=== PATIENT | female | born 1960 | race Caucasian/White ===

== ENCOUNTER 2024-05-18 06:23 | Day surgery (SDC) | payer OTHER, SELFPAY | END 2024-05-18 10:09 | disposition home or self-care (01) | LOC: GI 06:23 | PROVIDERS: ATTENDING PHYSICIAN Internal Medicine | DX: Z12.11 Encounter for screening for malignant neoplasm of colon (principal); D12.2 Benign neoplasm of ascending colon; K64.8 Other hemorrhoids; K57.30 Diverticulosis of large intestine without perforation or abscess without bleeding | CPT/HCPCS: 45380; 45381; 88305 ==

== ENCOUNTER 2024-07-20 06:18 | Day surgery (SDC) | payer OTHER, SELFPAY ==
[2024-07-20 06:50] VITALS: BMI 21.4
[2024-07-20 06:55] VITALS: BP 130/70
[2024-07-20 07:03] VITALS: BMI 21.4
[2024-07-20 09:27] VITALS: BP 107/67
[2024-07-20 09:30] VITALS: BP 111/84
[2024-07-20 09:45] VITALS: BP 124/82
[2024-07-20 09:50] VITALS: BP 106/63
== END 2024-07-20 10:00 | disposition home or self-care (01) ==
LOC: SDS 06:18
PROVIDERS: ATTENDING PHYSICIAN Internal Medicine Gastroenterology
DX: D12.2 Benign neoplasm of ascending colon (principal); K57.30 Diverticulosis of large intestine without perforation or abscess without bleeding; K64.0 First degree hemorrhoids
CPT/HCPCS: 45390; 88305

== ENCOUNTER 2025-01-18 06:21 | Day surgery (SDC) | payer OTHER, SELFPAY | END 2025-01-18 09:13 | disposition home or self-care (01) | LOC: GI 06:21 | PROVIDERS: ATTENDING PHYSICIAN Internal Medicine | DX: Z09 Encounter for follow-up examination after completed treatment for conditions other than malignant neoplasm (principal); K57.30 Diverticulosis of large intestine without perforation or abscess without bleeding; K64.8 Other hemorrhoids; K63.5 Polyp of colon; Z86.0101 Personal history of adenomatous and serrated colon polyps | CPT/HCPCS: 45380; 88305 ==

== ENCOUNTER → 2025-04-14 11:34 | Outpatient (REF) | payer OTHER, SELFPAY | LOC: WDC 11:34 | PROVIDERS: ATTENDING PHYSICIAN Nurse Practitioner Family | DX: N95.1 Menopausal and female climacteric states (principal); Z12.31 Encounter for screening mammogram for malignant neoplasm of breast | CPT/HCPCS: 77063; 77067; 77080 ==